=== PATIENT | male | born 1970 | race Caucasian/White ===

== ENCOUNTER → 2019-09-10 13:03 | Outpatient (CLI) | payer OTHER, SELFPAY ==
--- NOTE | 2019-09-10 13:06 | DI.RAD.S_ITS ---
PROCEDURE: XR ELBOW LT MIN 3V INDICATIONS: pain to distal tricep insertion, r/o dislocation/bony ab. TECHNIQUE: 3 views of the elbow were acquired. COMPARISON: None. FINDINGS: Bones: No fractures or dislocations. No suspicious bony lesions. Soft tissues: No elbow joint effusion. No suspicious soft tissue calcifications. IMPRESSION: No acute osseous abnormalities. Dictated by: Sergio Thompson M.D. on 09/10/2019 at 14:32 Approved by: Sergio Thompson M.D. on 09/10/2019 at 14:33
== END ==
PROVIDERS: Referring Provider Physician Assistant; Visit Provider Physician Assistant
DX: S59.902A Unspecified injury of left elbow, initial encounter (principal); X58.XXXA Exposure to other specified factors, initial encounter
CPT/HCPCS: 73080

== ENCOUNTER → 2020-04-24 15:56 | Outpatient (ROUT) | payer OTHER, SELFPAY ==
[2020-04-25 22:28] LABS: COVID19 Sendout Not Detected (Not Detect)
== END ==
PROVIDERS: Visit Provider Physician Assistant
DX: Z11.59 Encounter for screening for other viral diseases (principal)
CPT/HCPCS: 87635

== ENCOUNTER → 2021-02-09 09:45 | Outpatient (CLI) | payer OTHER, SELFPAY ==
--- NOTE | 2021-03-06 08:40 | PM.CARDMON.1 ---
Application Defense Manager Report Referral & Results Date Patient Seen: 02/09/21 Requesting provider: Darrius Cuevas Indication: Cardiac arrhythmia Duration of monitoring (days): 4 Diary information: There were 12 patient triggered events and 5 patient diary entries Patient triggered events were associated with (within 45 seconds) sinus rhythm, PACs and PVCs Patient diary events were associated with (within 45 seconds) sinus rhythm and PVCs Data: Minimum heart rate identified was 46 beats per minute at 06:07 on 02/11/2021 Maximum heart rate was 161 beats per minute at 11:01 on 02/12/2021 Less than 1% of identified beats were ventricular or supraventricular ectopic in origin, which would classify them as rare. 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 Patient events are not clearly identified with anyone particular arrhythmia No serious dysrhythmias identified on this study
== END ==
PROVIDERS: Referring Provider Family Medicine; Visit Provider Family Medicine
DX: I49.9 Cardiac arrhythmia, unspecified (principal)
CPT/HCPCS: 93242; 93244

== ENCOUNTER → 2022-01-19 14:10 | Outpatient (CLI) | payer OTHER, SELFPAY ==
[2022-01-19 14:49] LABS: COVID19 -Nasal RAPID Negative (Negative)
--- NOTE | 2022-01-19 15:44 | PM.TREADMILL ---
Cardiac Stress Test Report Referral & Results Date Patient Seen: 01/19/22 Time Patient Seen: 15:44 Requesting provider: Michi Hernandez Indication: Palpitations Rest ECG: Sinus rhythm Procedure Note: Standard Oral protocol, 11:01, 11.7 METS Fair exercise capacity, ELOISA -4% Normal hemodynamic response to exercise No chest pain or anginal symptoms No significant ST changes at peak exercise No ectopy Impression: Normal exercise stress test Please note: Actual ECG tracings can be found in the PACS system.
--- NOTE | 2022-01-23 18:35 | DI.NM.S_ITS ---
DATE OF SERVICE: PROCEDURE PERFORMED: Exercise stress test. INDICATION: Dyspnea. CARDIAC STRESS: Patient underwent exercise stress test under the supervision of an attending staff. The patient walked on Oral protocol for 11 minutes and 01 seconds, achieved 11.7 METs of workload, 105 percent of target heart rate, and hypertensive blood pressure response. Functional aerobic impairment -4 percent. Baseline blood pressure 140/80. Peak blood pressure 210/90. Baseline rhythm was sinus. During stress, no convincing ischemic changes or arrhythmias seen. No chest pain. The patient felt dyspnea. CONCLUSION: Exercise stress test is negative for inducible ischemia. Mildly hypertensive blood pressure response. No anginal symptoms. Fair exercise tolerance. No significant arrhythmias seen. Overall low-risk exercise stress test. Ulisses Cheek - WILLIAMS/cheyenne/SHYLA doc#: [id number]/job#: [id number] dd: 01/23/2022 17:23:00 dt: 01/23/2022 18:19:00 DICTATING /COPIES TO: Elizabeth Araiza MD COPIES MNE: SANTO;
== END ==
PROVIDERS: PCP Family Medicine; Referring Provider Internal Medicine Cardiovascular Disease; Visit Provider Internal Medicine Cardiovascular Disease
DX: R00.2 Palpitations (principal); R06.00 Dyspnea, unspecified; I10 Essential (primary) hypertension; Z20.822 Contact with and (suspected) exposure to COVID-19
CPT/HCPCS: 87635; 93017

== ENCOUNTER → 2022-12-12 07:46 | Outpatient (CLI) | payer OTHER, SELFPAY ==
[2022-12-12 08:57] LABS: Influenza A - CEPHEID Flu A NEGATIVE (NEGATIVE); Influenza B - CEPHEID Flu B NEGATIVE (NEGATIVE); Respiratory Syncytial Virus Negative (Negative)
[2022-12-12 09:10] LABS: COVID-19 CEPHEID 4-PLEX PCR Negative (Negative)
== END ==
PROVIDERS: PCP Family Medicine; Visit Provider Nurse Practitioner Family
DX: J02.9 Acute pharyngitis, unspecified (principal); R50.9 Fever, unspecified; Z20.822 Contact with and (suspected) exposure to COVID-19
CPT/HCPCS: 0241U; 87070; 87077; 87147

== ENCOUNTER → 2023-12-19 10:05 | Outpatient (CLI) | payer OTHER, SELFPAY | PROVIDERS: PCP Family Medicine; Visit Provider Nurse Practitioner Family | DX: R10.9 Unspecified abdominal pain (principal) | CPT/HCPCS: 87086 ==

== ENCOUNTER → 2023-12-19 10:46 | Outpatient (CLI) | payer OTHER, SELFPAY ==
--- NOTE | 2023-12-19 10:47 | DI.RAD.S_ITS ---
PROCEDURE: XR RIBS LT MIN 3V W CXR1V INDICATIONS: Left rib pain TECHNIQUE: 2 views of the ribs were acquired, along with a single view chest. COMPARISON: None. FINDINGS: Surgical changes and devices: None. Bones and chest wall: No fractures or dislocations. No suspicious bony lesions. Overlying soft tissues appear unremarkable. Lungs and pleura: No pleural effusions or pneumothorax. Lungs appear clear. Mediastinum: Mediastinal contours appear normal. Heart size is normal. IMPRESSION: No displaced rib fracture or pneumothorax. Dictated by: Arnav Saravia M.D. on 12/19/2023 at 13:18 Approved by: Arnav Saravia M.D. on 12/19/2023 at 13:19
== END ==
LOC: RAD 10:46
PROVIDERS: PCP Family Medicine; Referring Provider Nurse Practitioner Family; Visit Provider Nurse Practitioner Family
DX: R07.81 Pleurodynia (principal); R10.9 Unspecified abdominal pain
CPT/HCPCS: 71101; 87086

== ENCOUNTER → 2025-07-12 14:08 | Outpatient (CLI) | payer OTHER, SELFPAY ==
--- NOTE | 2025-07-12 14:11 | DI.CT.S_ITS ---
PROCEDURE: CT HEAD/BRAIN WO CON INDICATIONS: CONCUSSION TECHNIQUE: Noncontrast 4.5 mm thick angled axial sections acquired from the foramen magnum to the vertex, with coronal and sagittal reformats. For radiation dose reduction, the following was used: automated exposure control, adjustment of mA and/or kV according to patient size. COMPARISON: None. FINDINGS: Image quality: Diagnostic. CSF spaces: Basal cisterns are patent. No extra-axial fluid collections. Ventricles are normal in size and shape. Brain: No midline shift. No intracranial mass effect or hemorrhage. Cameron- white matter interface is normal. Skull and face: Calvarium and visualized facial bones are intact, without suspicious lesions. Sinuses: Visualized sinuses and mastoids are clear. IMPRESSION: No acute intracranial pathology. Dictated by: Elliott Santiago M.D. on 07/13/2025 at 11:33 Approved by: Elliott Santiago M.D. on 07/13/2025 at 11:33
== END ==
PROVIDERS: PCP Family Medicine; Referring Provider Family Medicine; Visit Provider Family Medicine
DX: S06.0X0A Concussion without loss of consciousness, initial encounter (principal)
CPT/HCPCS: 70450